=== PATIENT | female | born 1985 | race Caucasian/White ===

== ENCOUNTER 2019-09-01 08:34 | Emergency (ER) | payer OTHER ==
[~2019-09-01] VITALS: Ht 165.1 cm; Wt 60.8 kg
[2019-09-01 09:10] LABS: BASOPHIL % 0.4 % (0-2); PLATELET COUNT 348 x10^3mcL (130-400); RED CELL DISTRIBUTION WIDTH 13.2 % (11.5-14.5)
[2019-09-01 09:34] LABS: UA SPECIFIC GRAVITY 1.025 (1.005-1.035); microscopic required? YES; urine erythrocyte 3+ (NEGATIVE)
[2019-09-01 12:28] VITALS: BP 93/50
== END 2019-09-01 12:28 | disposition home or self-care (01) ==
LOC: ED 08:34
PROVIDERS: Student in an Organized Health Care Education/Training Program
DX: O20.0 Threatened abortion (principal); Z3A.01 Less than 8 weeks gestation of pregnancy
CPT/HCPCS: 36415; 87491; 87591

== ENCOUNTER 2019-09-03 14:21 | Emergency (ER) | payer OTHER ==
[~2019-09-03] VITALS: Ht 165.1 cm; Wt 62.1 kg
[2019-09-03 14:36] VITALS: Ht 165.1 cm; Wt 62.1 kg
[2019-09-03 17:49] VITALS: BP 105/62
== END 2019-09-03 17:49 | disposition home or self-care (01) ==
LOC: ED 14:21
DX: O03.9 Complete or unspecified spontaneous abortion without complication (principal)

== ENCOUNTER 2020-02-03 09:32 | Emergency (ER) | payer OTHER ==
[~2020-02-03] VITALS: Ht 162.6 cm; Wt 51.7 kg
[2020-02-03 09:41] VITALS: Ht 162.6 cm; Wt 51.7 kg
[2020-02-03 12:59] VITALS: BP 106/60
== END 2020-02-03 12:59 | disposition home or self-care (01) ==
LOC: ED 09:32
DX: S92.512A Displaced fracture of proximal phalanx of left lesser toe(s), initial encounter for closed fracture (principal); W22.8XXA Striking against or struck by other objects, initial encounter; Y93.89 Activity, other specified; Y92.89 Other specified places as the place of occurrence of the external cause; Y99.8 Other external cause status